=== PATIENT | female | born 1945 | race African-American/Black ===

== ENCOUNTER 2022-05-24 18:09 | Inpatient (IN) ==
[2022-05-24] MEDS ORDERED: ONDANSETRON 4 MG/2 ML VIAL IV PRN (20:56)
[2022-05-24] MEDS ORDERED: HYDROmorphone 1 MG/1 ML SYRINGE IV PRN (20:56)
[2022-05-24] MEDS ORDERED: SIMVASTATIN 10 MG TABLET PO SCH (22:30)
[2022-05-24] MEDS: DONEPEZIL 10 MG TABLET PO SCH (22:50)
[2022-05-25] MEDS: PANTOPRAZOLE 40 MG TABLET PO SCH (08:18)
[2022-05-25 10:02] LABS: Basophils % 0.4 % (0.0-0.8); Eosinophils % 0.2 % (0.00-10.9); Hematocrit 37.4 VOL% (35.7-47.0); Hemoglobin 11.7 GM/DL (12.0-16.0); Immature Granulocytes % 0.4 %; Immature Granulocytes Absolute 0.02 #; Lymphocytes # 1.4 10*3/uL (1.4-4.0); Lymphocytes % 31.1 % (21.3-54.2); Mean Corpuscular HGB Conc 31.3 GM/DL (32-36); Mean Corpuscular Volume 91.7 FL (87-102); Mean Platelet Volume 11.8 FL (9.6-12.0); Monocytes # 0.7 10*3/uL (0.11-0.8); Monocytes % 14.4 % (1.7-12.7); Neutrophils % 53.5 % (38.7-73.9); Platelet Count 139 T/CUMM (130-400); Red Blood Count 4.08 MC/CUMM (3.8-5.5); Red Cell Distribution Width 14.9 % (9.3-17.3); White Blood Count 4.5 T/CUMM (4-12)
[2022-05-25 10:30] LABS: Albumin 2.8 G/DL (3.4-5.0); Bilirubin,Total 0.5 MG/DL (0.20-1.00); Calcium 8.6 MG/DL (8.5-10.1); Osmolality,Calculated 279.5 MOS/KG (273-304); Potassium 3.9 MMOL/L (3.5-5.1); Thyroid Stimulating Hormone 0.14 uIU/ml (0.358-3.74); Total Protein 6.9 G/DL (6.4-8.2)
[2022-05-25 10:46] LABS: Ovalocytes Few; Platelet Estimate Normal
[2022-05-25 10:47] LABS: Schistocytes Slight
[2022-05-25] MEDS: SODIUM CHLORIDE 0.9% 1,000 ML IV SCH (10:54)
[2022-05-25 15:34] LABS: Mucus,Urine Occasional /LPF (Occasional); Squamous Epithelial Cell,Urine Occasional /HPF (0-10)
[2022-05-25 15:40] LABS: Bilirubin,Urine Negative (Negative); Blood, Urine Negative (Negative); Glucose,Urine (UA) Negative (Negative); Ketones,Urine Negative (Negative); Nitrite,Urine Negative (Negative); Protein,Urine Trace mg/dL (Negative); Urine Appearance Clear (Clear); Urine Color Yellow (Yellow); Urine Urobilinogen 0.2 eU/dL (<2.0)
[2022-05-25] MEDS: cefTRIAXone 1,000 MG in SODIUM CHLORIDE 0.9% 100 ML IV SCH (17:00)
[2022-05-25] MEDS: DONEPEZIL 10 MG TABLET PO SCH (21:29)
[2022-05-25] MEDS: LATANOPROST 0.005% OPH SOLN 2.5 ML BOTTLE BOTH EYES SCH (21:30)
[2022-05-25] MEDS: SIMVASTATIN 10 MG TABLET PO SCH (21:30)
[2022-05-26] MEDS: SODIUM CHLORIDE 0.9% 1,000 ML IV SCH ×4 (00:18→18:21)
[2022-05-26] MEDS: LEVOTHYROXINE 125 MCG TABLET PO SCH (06:07)
[2022-05-26] MEDS: LORATADINE 10 MG TABLET PO SCH (08:09)
[2022-05-26] MEDS: PANTOPRAZOLE 40 MG TABLET PO SCH (08:09)
[2022-05-26] MEDS: FLUTICASONE 50 MCG NASAL SPRAY 16 GM BOTTLE BOTH NARES SCH (08:16)
[2022-05-26] MEDS: cefTRIAXone 1,000 MG in SODIUM CHLORIDE 0.9% 100 ML IV SCH (13:50)
[2022-05-26] MEDS: ESCITALOPRAM 10 MG TABLET PO PRN (18:20)
[2022-05-26] MEDS: LATANOPROST 0.005% OPH SOLN 2.5 ML BOTTLE BOTH EYES SCH (20:58)
[2022-05-26] MEDS: SIMVASTATIN 10 MG TABLET PO SCH (20:58)
[2022-05-26] MEDS: DONEPEZIL 10 MG TABLET PO SCH (20:58)
[2022-05-27] MEDS: SODIUM CHLORIDE 0.9% 1,000 ML IV SCH ×2 (05:29→16:31)
[2022-05-27 06:07] LABS: Basophils % 0.7 % (0.0-0.8); Eosinophils # 0.1 10*3/uL (0.0-0.87); Eosinophils % 3.3 % (0.00-10.9); Hematocrit 33.7 VOL% (35.7-47.0); Hemoglobin 10.5 GM/DL (12.0-16.0); Immature Granulocytes % 0.3 %; Immature Granulocytes Absolute 0.01 #; Lymphocytes # 1.7 10*3/uL (1.4-4.0); Lymphocytes % 56.5 % (21.3-54.2); Mean Corpuscular HGB Conc 31.2 GM/DL (32-36); Mean Corpuscular Volume 91.3 FL (87-102); Mean Platelet Volume 12.3 FL (9.6-12.0); Monocytes # 0.4 10*3/uL (0.11-0.8); Monocytes % 12.7 % (1.7-12.7); Neutrophils % 26.5 % (38.7-73.9); Platelet Count 122 T/CUMM (130-400); Red Blood Count 3.69 MC/CUMM (3.8-5.5); Red Cell Distribution Width 14.7 % (9.3-17.3)
[2022-05-27 06:25] LABS: Calcium 8.3 MG/DL (8.5-10.1); Osmolality,Calculated 284.8 MOS/KG (273-304); Potassium 3.5 MMOL/L (3.5-5.1)
[2022-05-27 06:33] LABS: Eosinophils 2 % (0-10); Lymphocytes 52 % (20-55); Total Cells Counted 100
[2022-05-27 06:34] LABS: Platelet Estimate Normal
[2022-05-27] MEDS: LEVOTHYROXINE 125 MCG TABLET PO SCH (06:35)
[2022-05-27] MEDS ORDERED: REMDESIVIR 200 MG in SODIUM CHLORIDE 0.9% 210 ML IV ONE (10:00)
[2022-05-27] MEDS: LORATADINE 10 MG TABLET PO SCH (10:38)
[2022-05-27] MEDS: PANTOPRAZOLE 40 MG TABLET PO SCH (10:38)
[2022-05-27] MEDS: FLUTICASONE 50 MCG NASAL SPRAY 16 GM BOTTLE BOTH NARES SCH (10:41)
[2022-05-27] MEDS: cefTRIAXone 1,000 MG in SODIUM CHLORIDE 0.9% 100 ML IV SCH (16:30)
[2022-05-27] MEDS: LATANOPROST 0.005% OPH SOLN 2.5 ML BOTTLE BOTH EYES SCH (21:29)
[2022-05-27] MEDS: DONEPEZIL 10 MG TABLET PO SCH (21:29)
[2022-05-27] MEDS: SIMVASTATIN 10 MG TABLET PO SCH (21:29)
[2022-05-28 05:48] LABS: Basophils % 0.5 % (0.0-0.8); Eosinophils # 0.2 10*3/uL (0.0-0.87); Eosinophils % 4.1 % (0.00-10.9); Hemoglobin 10.8 GM/DL (12.0-16.0); Immature Granulocytes % 0.5 %; Immature Granulocytes Absolute 0.02 #; Lymphocytes # 1.6 10*3/uL (1.4-4.0); Lymphocytes % 44.2 % (21.3-54.2); Mean Corpuscular HGB Conc 30.9 GM/DL (32-36); Mean Corpuscular Volume 91.1 FL (87-102); Mean Platelet Volume 12.5 FL (9.6-12.0); Monocytes # 0.4 10*3/uL (0.11-0.8); Monocytes % 9.6 % (1.7-12.7); Neutrophils % 41.1 % (38.7-73.9); Platelet Count 124 T/CUMM (130-400); Red Blood Count 3.84 MC/CUMM (3.8-5.5); Red Cell Distribution Width 14.8 % (9.3-17.3); White Blood Count 3.6 T/CUMM (4-12)
[2022-05-28] MEDS: LEVOTHYROXINE 125 MCG TABLET PO SCH (06:01)
[2022-05-28 06:46] LABS: Alanine Aminotransferase 33 U/L (13-56); Albumin 2.2 G/DL (3.4-5.0); Alkaline Phosphatase 64 U/L (45-117); Aspartate Amino Transferase 34 U/L (0-37); Bilirubin,Total < 0.39 MG/DL (0.20-1.00); Blood Urea Nitrogen 10 MG/DL (7-18); Calcium 8.7 MG/DL (8.5-10.1); Carbon Dioxide 25 MMOL/L (21-32); Chloride 111 MMOL/L (98-107); Glucose 101 MG/DL (74-106); Potassium 3.6 MMOL/L (3.5-5.1); Sodium 143 MMOL/L (136-145); Total Protein 5.9 G/DL (6.4-8.2)
[2022-05-28] MEDS: PANTOPRAZOLE 40 MG TABLET PO SCH (10:25)
[2022-05-28] MEDS: LORATADINE 10 MG TABLET PO SCH (10:25)
[2022-05-28] MEDS: ESCITALOPRAM 10 MG TABLET PO PRN (10:25)
[2022-05-28] MEDS: FLUTICASONE 50 MCG NASAL SPRAY 16 GM BOTTLE BOTH NARES SCH (10:25)
[2022-05-28] MEDS: REMDESIVIR 100 MG in SODIUM CHLORIDE 0.9% 100 ML IV SCH (10:25)
[2022-05-28] MEDS ORDERED: PSYLLIUM POWDER 3.7 GM/PACK PO ONE (14:50)
[2022-05-28] MEDS: cefTRIAXone 1,000 MG in SODIUM CHLORIDE 0.9% 100 ML IV SCH (15:27)
[2022-05-28] MEDS: DOCUSATE SODIUM 100 MG CAPSULE PO PRN (15:28)
[2022-05-28] MEDS: SIMVASTATIN 10 MG TABLET PO SCH (21:21)
[2022-05-28] MEDS: LATANOPROST 0.005% OPH SOLN 2.5 ML BOTTLE BOTH EYES SCH (21:21)
[2022-05-28] MEDS: DONEPEZIL 10 MG TABLET PO SCH (21:21)
[2022-05-29] MEDS: LEVOTHYROXINE 125 MCG TABLET PO SCH (05:51)
[2022-05-29] MEDS: REMDESIVIR 100 MG in SODIUM CHLORIDE 0.9% 100 ML IV SCH (10:45)
[2022-05-29] MEDS: LORATADINE 10 MG TABLET PO SCH (10:45)
[2022-05-29] MEDS: PANTOPRAZOLE 40 MG TABLET PO SCH (10:45)
[2022-05-29] MEDS: DOCUSATE SODIUM 100 MG CAPSULE PO PRN (10:45)
[2022-05-29] MEDS: FLUTICASONE 50 MCG NASAL SPRAY 16 GM BOTTLE BOTH NARES SCH (11:49)
[2022-05-29] MEDS: cefTRIAXone 1,000 MG in SODIUM CHLORIDE 0.9% 100 ML IV SCH (13:18)
[2022-05-29 14:45] VITALS: BP 138/70
== END 2022-05-29 16:20 | disposition home or self-care (01) | DRG 179 ==
LOC: N.EDINP 18:09 → N.ED 18:09 → N.EDINP 21:50 → N.TELEN 22:10
PROVIDERS: ADMIT Family Medicine; ATTEND Family Medicine